=== PATIENT | female | born 1970 | race Caucasian/White ===

== ENCOUNTER 2020-12-06 17:58 | Emergency (ER) | payer BC, SELFPAY ==
--- NOTE | 2020-12-06 18:07 | ED.URI ---
HPI - URI/Sore Throat General Chief Complaint: Upper Respiratory Infection Stated Complaint: cough/gary/chest congestion Time Seen by Provider: 12/06/20 18:09 Source: patient and RN notes reviewed Mode of arrival: ambulatory Limitations: no limitations History of Present Illness HPI Narrative: 50 year old female who presents to [facility] care with complaints of dry cough and chest congestion with dry cough for 2 week duration with headache, sinus congestion and sinus pressure for 1 week duration. Patient states that she has been taking Ibuprofen and Sudafed for her symptoms with no resolution. Patient states no known fevers bur has had chills and generalized discomfort. Patient states that she had COVID on November 04 with symptoms lasting around 5 days MD elicited complaint: cough, nasal congestion and other (chest congestion) Pertinent past history: other (COVID in October) Onset (ago): week(s) (1) Consistency: progressively worsening Associated symptoms: headache, nasal congestion, cough and other (chest congestion) Treatments prior to arrival: ibuprofen and other (sudafed) Related Data Allergies Allergy/AdvReac Type Severity Reaction Status Date / Time venom-honey bee Allergy Wheezing Verified 12/06/20 18:10 Review of Systems Review of Systems: Narrative: CONSTITUTIONAL: reports no known fever,positive for chills, or sweats. EYES: Denies visual changes, redness, or discharge. ENT: Denies rhinorrhea, positive congestion, no sore throat, or otalgia. CARDIOVASCULAR: Denies chest pain, palpitations, or edema. RESPIRATORY: Positive for dry cough denies dyspnea. GASTROINTESTINAL: Denies abdominal pain, nausea, vomiting, or diarrhea. GENITOURINARY: Denies dysuria or hematuria. SKIN: Denies rash or itching. MUSCULOSKELETAL: Denies back pain, joint pain, positive for generalized myalgia. NEUROLOGIC: Positive headache,no numbness, or weakness. PSYCHIATRIC: Denies anxiety or depression. All systems reviewed & are unremarkable except as noted in HPI and below PMFSH Past Medical History Medical History (Updated 12/08/20 @ 10:33 by Radha Dent NP) COVID-19 Surgical History Surgical History (Updated 12/08/20 @ 10:33 by Radha Dent NP) No history of previous surgery Family History Family History (Updated 12/08/20 @ 10:34 by Radha Dent NP) Other No significant family history Social History Social History (Updated 12/08/20 @ 10:34 by Radha Dent NP) Smoking status: Never smoker Alcohol intake: current Alcohol use details: social Substance use: never Living arrangements: with family Gender identity (if verbalized by the patient): Female Comments At time of signature, agree with nursing past medical, surgical, social and family history. There is no relevant family history pertinent to the presenting complaint Exam Narrative: Exam Narrative: GENERAL: Well-appearing, well-nourished, and in no acute distress. HEAD: Normocephalic, atraumatic. EYES: PERRLA and EOMI. ENT: Nares red, no rhinorrhea or epistaxis. Mucous membranes moist.TM's normal with good light reflex, throat pink with no lesions or exudates or tonsil enlargement, post nasal drainage noted, sinus pressure with headache NECK: Supple.no lymphadenopathy CHEST: Decreased to auscultation. No respiratory distress.dry cough [id number] on room air HEART: Regular rate and rhythm. No murmur heard. Normal peripheral pulses. ABDOMEN: Soft, nontender, nondistended, normal active bowel sounds. EXTREMITIES: Normal range of motion. No edema. SKIN: Warm, dry, no rash. NEURO: No focal deficits. Alert and oriented x3. Course Vital Signs Vital signs: Vital Signs Temperature 37.1 C 12/06/20 18:10 Pulse Rate 83 12/06/20 18:10 Respiratory Rate 16 12/06/20 18:10 Blood Pressure 129/70 12/06/20 18:10 Pulse Oximetry 100 12/06/20 18:10 Temperature 37.1 C 12/06/20 18:10 Pulse Rate 83 12/06/20 18:10 Respiratory Rate
[2020-12-06 18:10] VITALS: BP 129/70; PULSE 83; RESP 16; TEMP 37.1; O2SAT 100
== END 2020-12-06 18:29 | disposition home or self-care (01) ==
PROVIDERS: Emergency Provider Registered Nurse
DX: J32.9 Chronic sinusitis, unspecified (principal); R05 Cough
CPT/HCPCS: 99213; G0463